=== PATIENT | male | born 1950 | race Caucasian/White ===

== ENCOUNTER → 2018-03-28 | Day surgery (SDC) | payer MEDICARE, OTHER ==
[~2018-03-28] MED LIST: Sodium Bicarbonate 2.5 MEQ/5 ML VIAL ONE
--- NOTE | 2018-03-28 14:37 | ULT ---
THYROID ULTRASOUND: HISTORY: Thyroid nodule. COMPARISON: None. TECHNIQUE: Sagittal and transverse imaging of the thyroid gland is performed. FINDINGS: The thyroid isthmus measures 0.4 cm. The left thyroid lobe measures 4.2 x 2.3 x 2.6 cm. The right thyroid lobe measures 4.1 x 1.3 x 1.8 c m. No masses in the isthmus or right thyroid lobe. Mixed echotexture mass in the left thyroid lobe which measures 3.2 x 1.5 x 2.6 cm. IMPRESSION: Complex dominant nodule in the left thyroid lobe. POS: [facility]
--- NOTE | 2018-03-28 14:39 | ULT ---
ULTRASOUND GUIDED FINE NEEDLE ASPIRATION OF A DOMINANT NODULE IN THE LEFT THYROID LOBE: FINDINGS: Technically successful ultrasound-guided fine needle aspiration of a dominant nodule in the left thyr oid lobe. A total of four 25-gauge fine needle aspirations were performed. No immediate or post pro cedure complication. TECHNIQUE: Consent was obtained to perform a fine needle aspiration of a nodule in the left thyroid lobe, measur ing 3.2 x 2.2 x 1.7 cm. The skin was prepped and draped in a sterile fashion. 1% Lidocaine, buffere d with sodium bicarbonate, was used for local anesthesia. Under ultrasound guidance, a 25-gauge fine needle aspiration was performed, x 4. The patient tolerated the procedure well. No immediate or po st procedure complications. IMPRESSION: Successful fine needle aspiration of a dominate nodule in the left thyroid lobe. Final pathologic di agnosis is pending. POS: [facility]
== END ==
LOC: ULT 12:31
PROVIDERS: ATTEND Otolaryngology Plastic Surgery within the Head & Neck
PROC: 0GBG3ZX Excision of Left Thyroid Gland Lobe, Percutaneous Approach, Diagnostic (ICD-10-PCS; principal; 2018-03-28)
DX: E04.1 Nontoxic single thyroid nodule (principal)
CPT/HCPCS: 10022; 76536; 76942; 88173; 88305

== ENCOUNTER 2018-08-31 10:48 | Outpatient (CLI) | payer MEDICARE, OTHER ==
--- NOTE | 2018-08-31 12:36 | CT ---
CT CERVICAL SPINE: History: Cervical spine fusion, numbness, tingling down both shoulders. Technique: Axial images were obtained of the cervical spine with coronal and sagittal reconstruction. FINDINGS: CT images demonstrate ACDF with fusion of the C2, C3, C4, C5, C6, and C7 vertebrae. There is a minima l anterior displacement of the right C2 screw approximately 1.3 mm anterior to the plate. The rest of the screws are in good position and not significantly displaced. There is disc space height loss and disc desiccation and minimal anterolisthesis of C7 on T1. Mild an terolisthesis of C7 on T1 is seen, approximately 3.6 mm. This is likely due to facet degenerative freddy nges at C7-T1. Mild to moderate bilateral neural foraminal narrowing is also seen due to osteophyte e ncroachment. The other neural foramen are patent. Moderate bilateral distal common and proximal ICA carotid calcifications seen. There does appear to be some heterogeneity in the left thyroid lobe. This correlates with the patient 's previous thyroid ultrasound from 03-28-18. IMPRESSION: Disc degenerative changes at C7-T1 just at the level below the extensive fusion levels. Some osteophy vijay are seen extending to the neural foramen. POS: [facility]
== END 2018-08-31 10:49 | disposition home or self-care (01) ==
LOC: TBSIIMAG 10:48
PROVIDERS: ATTEND Neurological Surgery
DX: M47.23 Other spondylosis with radiculopathy, cervicothoracic region (principal); Z98.1 Arthrodesis status
CPT/HCPCS: 72125

== ENCOUNTER 2018-09-22 11:24 | Day surgery (SDC) | payer MEDICARE, OTHER ==
[2018-09-21 15:32] VITALS: BMI 35.7
[2018-09-22] MEDS ORDERED: PROPOFOL 200 MG/20 ML VIAL ONE (13:00)
[2018-09-22] MEDS ORDERED: Midazolam HCl 2 mg/2 ml Vial ONE (13:02)
[2018-09-22] MEDS ORDERED: Fentanyl 100 MCG/2 ML VIAL ONE (13:03)
--- NOTE | 2018-09-22 15:50 | MRI ---
MRI CERVICAL SPINE WITHOUT CONTRAST: HISTORY: Cervical fusion. Cervical spine pain. Neck pain with bilateral shoulder numbness. COMPARISON: None. CORRELATION: CT cervical spine 08/31/2018. FINDINGS: Limited evaluation of the cervical spine vertebral body marrow signal intensity due to metallic susce ptibility artifact from the anterior fusion plate spanning from C2 through C7. Disk prosthesis from C2 through C3 through C6-C7. Five millimeters of anterolisthesis of C7 upon T1.. Visualized brain parenchyma, cervicomedullary junction, cervical cord, and the upper thoracic cord delong ve a normal size and signal intensity. C2-C3: No high-grade central canal stenosis. Neural foramen are patent bilaterally. C3-C4: No high-grade central canal stenosis. Right neural foramen is patent. Moderate left foramin al narrowing. C4-C5: Broad-based osteophyte ridge. No significant central canal stenosis. The right neural horacio en is patent. There is mild left foraminal narrowing. C5-C6: No significant osteophyte ridge. No significant central canal stenosis. The neural foramen are patent bilaterally. C6-C7: No significant osteophyte ridge. No significant central canal stenosis. Mild right and mild left foraminal narrowing. C7-T1: No significant disk-osteophyte complex. No significant central canal stenosis. Foramina are patent. IMPRESSION: Cervical fusion changes as above. No significant central canal stenosis. There is moderate left shekhar ral foraminal narrowing at C3-C4. POS: [facility]
== END 2018-09-22 15:45 | disposition home or self-care (01) ==
LOC: SDC/OP 11:24
PROVIDERS: ATTEND Neurological Surgery
DX: M48.02 Spinal stenosis, cervical region (principal); Z79.82 Long term (current) use of aspirin; Z79.899 Other long term (current) drug therapy
CPT/HCPCS: 72141; J2250; J2704; J3010

== ENCOUNTER 2019-01-04 09:53 | Outpatient (CLI) | payer MEDICARE, OTHER | END 2019-01-04 09:54 | disposition home or self-care (01) | LOC: CTENTCT 09:53 | PROVIDERS: ATTEND Otolaryngology Plastic Surgery within the Head & Neck | DX: J32.9 Chronic sinusitis, unspecified (principal) | CPT/HCPCS: 70486 ==

== ENCOUNTER 2019-01-16 08:31 | Outpatient (CLI) | payer MEDICARE, OTHER ==
--- NOTE | 2019-01-16 11:29 | RAD ---
BARIUM SWALLOW ESOPHOGRAM WITH AIR CONTRAST: Date: 01-16-19 History: 68-year-old male with dysphagia. Technique: Upright administration of effervescent granules and thick liquid barium. Intermittent fluoroscopy of neck and esophagus. Prone MENARD administration of thin liquid barium with fluoroscopy. FINDINGS: Long anterior metallic plate and screws in the cervical spine from C2 to C7. Successful ankylosis. No osteophyte encroachment upon the hypopharynx. Significant barium residue in the vallecula and pyrifo rm sinuses with incomplete clear upon repeat dry swallows. Penetration into larynx. One episode of as piration eliciting cough. The esophagus is diffusely dilated except the esophagogastric junction. There is no high grade strict ure. Where visible, no gross mucosal pattern abnormality identified. No gastroesophageal reflux visua lized. There is moderate sized or large hiatal hernia. IMPRESSION: 1. Pharyngeal phase dysphagia, with significant residue in vallecula and pyriform sinuses, with poor clearance upon repeat swallows. 2. Penetration and single episode of aspiration. 3. Patulous esophagus. 4. Status post anterior cervical discectomy and fusion throughout the cervical spine. POS: [facility]
== END 2019-01-16 08:32 | disposition home or self-care (01) ==
LOC: RAD 08:31
PROVIDERS: ATTEND Otolaryngology Plastic Surgery within the Head & Neck
DX: R13.13 Dysphagia, pharyngeal phase (principal); K22.8 Other specified diseases of esophagus; Z98.890 Other specified postprocedural states; Z98.1 Arthrodesis status
CPT/HCPCS: 74220

== ENCOUNTER 2019-04-30 13:32 | Observation (INO) | payer MEDICARE, OTHER ==
[2019-04-30] MEDS ORDERED: HumaLOG 300 UNITS/3 ML VIAL SC PRN ×2 (17:06)
[2019-04-30] MEDS ORDERED: Ondansetron PF 4 MG/2 ML Vial IVP PRN (17:07)
[2019-04-30] MEDS ORDERED: Acetaminophen 325 MG TAB PO PRN (17:07)
[2019-04-30] MEDS ORDERED: Ondansetron ODT 4 MG TAB PO PRN (17:07)
[2019-04-30 17:16] VITALS: BMI 33.4
[2019-04-30] MEDS ORDERED: Sodium Chloride 0.9% (PF) 10 ML VIAL FS PRN (17:19)
[2019-04-30] MEDS ORDERED: Aspirin Chewable 81 MG TAB PO SCH (18:00)
[2019-04-30 18:04] LABS: Troponin I Less than 0.010 ng/mL (< 0.028)
[2019-04-30] MEDS: Gabapentin 300 MG CAP PO SCH (20:45)
[2019-04-30 20:52] LABS: Troponin I Less than 0.010 ng/mL (< 0.028)
[2019-04-30] MEDS ORDERED: Atorvastatin Calcium 20 MG TAB PO SCH (21:00)
[2019-04-30] MEDS ORDERED: Pantoprazole 40 MG VIAL IVP SCH (21:00)
--- NOTE | 2019-04-30 23:41 | HP ---
PRIMARY CARE PHYSICIAN: Dr. Romero. CHIEF COMPLAINT: Chest pain. HISTORY OF PRESENT ILLNESS: Mr. Brooks is a pleasant 68-year-old man with a past medical history of hypertension, hyperlipidemia, diabetes mellitus type 2, who had presented to [facility] after being transferred from an outside [place] ER earlier today for chest pain. The patient stated that his chest pain/chest pressure started earlier this morning when he was sitting in a chair watching television. He states that this pressure radiated up to his jaw and his pain improved after he had taken aspirin and nitroglycerin. He had denied any fever, chills, any headache, blurred vision, dizziness, any palpitations, shortness of breath, abdominal pain, nausea, or vomiting, any swelling down his lower extremities or any change in his bowel wounds. He states that he sees assistant designer Dr. Melendez and had recently undergone a cardiac workup, which included a stress test and an echocardiogram within the last year, he states that he thinks these were both negative. However, there was no evidence in the system that I could find. He denied any recent travel or any recent illness. His initial workup included a chest x-ray, which was found to be unremarkable and serial troponins were found to be negative x2 so far. Upon arrival, his blood pressure was found to be slightly elevated, however, this has since improved to 114/72, pulse 73, respirations 12, temp 97 degrees Fahrenheit, O2 saturation 98% on room air. He is currently accompanied by several family members at his bedside and he appears to be in no acute distress at this time. A consult was placed to Dr. Melendez for further evaluation and further recommendations on his care. REVIEW OF SYSTEMS: All other systems reviewed and found to be negative unless mentioned in the HPI. PAST MEDICAL HISTORY: Hypertension, hyperlipidemia, diabetes mellitus type 2. 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 PSYCHIATRIC HISTORY: None. SOCIAL HISTORY: The patient reports a previous smoking history; however, quit about 28 years ago and denies any alcohol or any illicit drug use. KNOWN ALLERGIES: No known drug allergies. CURRENT HOME MEDICATIONS: 1. Amlodipine 5 mg p.o. daily. 2. Acetaminophen 1000 mg p.o. p.r.n. pain. 3. Vitamin C 1000 mg p.o. b.i.d. 4. Aspirin 81 mg daily. 5. Cyclobenzaprine 10 mg p.o. t.i.d. p.r.n. muscle spasms. 6. Furosemide 20 mg p.o. daily. 7. Hydrocodone/acetaminophen 5/325 mg 1-2 tablets p.o. p.r.n. pain. 8. Loratadine 10 mg p.o. daily. 9. Metformin 500 mg p.o. b.i.d. 10. Omeprazole 20 mg p.o. b.i.d. 11. Saw Ronan 3 caps p.o. daily. 12. Simvastatin 20 mg p.o. q.p.m. 13. Tramadol 50 mg p.o. at bedtime p.r.n. pain. 14. Gabapentin 300 mg p.o. b.i.d. 15. Lisinopril 40 mg p.o. daily. PHYSICAL EXAMINATION: VITAL SIGNS: Blood pressure 155/77, pulse 54, respirations 20, temperature 97.9 degrees Fahrenheit, O2 saturations 97% on room air. GENERAL: The patient is awake, alert, and oriented x3. He is currently lying comfortably in bed and in no acute distress at this time. Several family members at bedside. HEENT: Atraumatic, normocephalic. Pupils are round and reactive to light. Extraocular muscles intact. Moist mucous membranes noted. NECK: Soft and supple. Trachea midline. CARDIOVASCULAR: Positive S1 and S2. Regular rate and rhythm. No murmur auscultated. RESPIRATORY: Clear to auscultation bilaterally. No wheezes, rales, or rhonchi. ABDOMEN: Soft, nontender. Bowel sounds present. MUSCULOSKELETAL: Normal range of motion of upper and lower extremities bilaterally. Pedal and radial pulses palpable 2+ bilaterally. No edema noted. NEUROLOGIC: Cranial nerves 2 through 12 grossly intact. No focal deficits noted. His strength 5+ bilaterally in upper and lower extremities. Speech intact and normal. Gait not assessed. SKIN: Warm, dry, and intact. No rashes or ulceration noted. PSYCHIATRIC: Good mood and affect. LABORATORY DATA: WBC 8.5, RBC 4.71, hemoglobin 14.0, platelet 199. Sodium 140, potassium 4.4, anion gap 17, BUN 13, creatinine 1.00, estimated GFR 74, glucose 128. Troponin negative x2. BNP 21.2. DIAGNOSTIC IMAGING: Portable chest x-ray showed no evidence of acute cardiopulmonary disease. ASSESSMENT/PLAN: 1. Chest pain, the patient's assistant designer will be consulted, Dr. Louie for further evaluation and further recommendations of his care. The patient states that he had a cardiac stress test along with an echocardiogram within the last year. However, there are no results seen in the system. So far, troponins negative x2, and he will be restarted on his home medications at this time. 2. Hypertension. Continue home regimen and monitor blood pressure and other vital signs closely during hospital course. 3. Hyperlipidemia. Continue statin at this time. Recheck lipid panel in the morning. 4. Diabetes mellitus, the patient will be placed on insulin sliding scale at this time with frequent Accu-Cheks and his home dose of metformin will be held at this time. 5. History of gastroesophageal reflux disease. Continue on proton pump inhibitor. 6. Deep venous thrombosis and gastrointestinal prophylaxis. CODE STATUS: 1. Full code. 2. Surrogate decision maker is his , Flor. DISPOSITION: Pending further workup and clinical findings. Job ID: [id number]
[2019-04-30] MEDS ORDERED: Nitroglycerin 0.4 MG TAB (25 Tab Bottle) SL PRN (23:46)
[2019-05-01 05:31] LABS: #Eosinphils 0.2 thou/uL (0.0-0.7); #Lymphocytes 2.1 thou/uL (1.20-3.40); #Monocytes 0.7 thou/uL (0.11-0.59); #Neutrophils 5.3 thou/uL (1.40-6.50); %Basophils 0.3 % (0.0-1.0); %Eosinophils 2.2 % (0.0-10.0); %Lymphocytes 25.5 % (21.0-51.0); %Monocytes 8.3 % (0.0-10.0); %Neutrophils 63.7 % (42.0-75.0); Hemoglobin 12.8 g/dL (14.0-18.0); Mean Corpuscular HGB CONC 34.7 g/dL (32.0-36.0); Mean Corpuscular Hemoglobin 30.9 pg (27.0-31.0); Mean Platelet Volume 6.8 fL (7.4-10.4); Platelet Count 198 thou/uL (130-400); RBC Distribution Width 12.1 % (11.5-14.5); Red Blood Cell (RBC) Count 4.13 mill/uL (4.70-6.10); White Blood Cell (WBC) Count 8.3 thou/uL (4.8-10.8)
[2019-05-01 05:48] LABS: Anion Gap 11 mmol/L (10-20); BUN (Urea Nitrogen) 14 mg/dL (8.4-25.7); Calc. Creatinine Clearance 112 mL/min (70-130); Calcium 9.3 mg/dL (7.8-10.44); Carbon Dioxide 26 mmol/L (23-31); Chloride 103 mmol/L (98-107); Cholesterol 122 mg/dl (< 200 Desired); Estimated GFR-MDRD 85; Glucose 124 mg/dL (80-115); HDL Cholesterol 41 mg/dL (>60 Neg Risk); LDL Cholesterol, Calculated 65 mg/dL; Sodium 136 mmol/L (136-145); Triglycerides 82 mg/dL (Less than 150)
[2019-05-01] MEDS ORDERED: Lisinopril 20 MG TAB PO SCH (09:00)
[2019-05-01] MEDS ORDERED: Furosemide 20 MG TAB PO SCH (09:00)
[2019-05-01] MEDS ORDERED: Enoxaparin Sodium 40 MG/0.4 ML SYRINGE SC SCH (09:00)
[2019-05-01] MEDS ORDERED: Amlodipine 5 MG TAB PO SCH (09:00)
[2019-05-01] MEDS: Gabapentin 300 MG CAP PO SCH (09:23)
[2019-05-01 13:25] VITALS: BP 132/73; TEMP 97.8
--- NOTE | 2019-05-04 09:12 | EKG ---
Test Reason : Blood Pressure : / mmHG Vent. Rate : 062 BPM Atrial Rate : 059 BPM P-R Int : 000 ms QRS Dur : 078 ms QT Int : 414 ms P-R-T Axes : 080 -17 -07 degrees QTc Int : 420 ms Sinus rhythm Minimal voltage criteria for LVH, may be normal variant Borderline ECG Leftward axis T wave inversion III Confirmed by TOMMY WILBURN DO ([id number]), rewrite editor RUBÉN MAYBERRY ([id number]) on 05/04/2019 9:11:51 AM Referred By: Confirmed By:TOMMY WILBURN DO
== END 2019-05-01 16:50 | disposition home or self-care (01) ==
LOC: ERS 13:32 → 2SW 16:35
PROVIDERS: ADMIT Internal Medicine; ATTEND Internal Medicine
DX: R07.89 Other chest pain (principal); I10 Essential (primary) hypertension; E78.5 Hyperlipidemia, unspecified; E11.40 Type 2 diabetes mellitus with diabetic neuropathy, unspecified; Z87.891 Personal history of nicotine dependence; Z79.82 Long term (current) use of aspirin; Z79.84 Long term (current) use of oral hypoglycemic drugs; Z79.899 Other long term (current) drug therapy; Z98.890 Other specified postprocedural states
CPT/HCPCS: 80048; 80061; 82962 ×2; 84443; 84484; 85025; 93005; 94760; 97139; 99285; G0378 ×2; 36415; 36416; J1650

== ENCOUNTER 2019-08-18 19:59 | Emergency (ER) | payer MEDICARE, OTHER ==
[2019-08-18 20:29] LABS: #Eosinphils 0.2 thou/uL (0.0-0.7); #Lymphocytes 2.2 thou/uL (1.20-3.40); %Basophils 0.1 % (0.0-1.0); %Eosinophils 2.4 % (0.0-10.0); %Lymphocytes 20.6 % (21.0-51.0); %Monocytes 9.6 % (0.0-10.0); %Neutrophils 67.3 % (42.0-75.0); Hemoglobin 14.3 g/dL (14.0-18.0); Mean Corpuscular HGB CONC 34.8 g/dL (32.0-36.0); Mean Corpuscular Hemoglobin 30.6 pg (27.0-31.0); Mean Corpuscular Volume 87.9 fL (78.0-98.0); Mean Platelet Volume 6.6 fL (7.4-10.4); Platelet Count 227 thou/uL (130-400); RBC Distribution Width 11.8 % (11.5-14.5); Red Blood Cell (RBC) Count 4.68 mill/uL (4.70-6.10); White Blood Cell (WBC) Count 10.4 thou/uL (4.8-10.8)
[2019-08-18] MEDS ORDERED: Morphine 4 MG/ML VIAL ONE (20:36)
[2019-08-18] MEDS ORDERED: Ondansetron PF 4 MG/2 ML Vial ONE (20:36)
[2019-08-18 20:51] LABS: ALT (SGPT) 24 U/L (8-55); AST (SGOT) 18 U/L (5-34); Albumin 4.7 g/dL (3.4-4.8); Alkaline Phosphatase 111 U/L (40-110); Anion Gap 14 mmol/L (10-20); BUN (Urea Nitrogen) 21 mg/dL (8.4-25.7); Bilirubin, Total 0.4 mg/dL (0.2-1.2); Calc. Creatinine Clearance 0 mL/min (70-130); Calcium 10.2 mg/dL (7.8-10.44); Carbon Dioxide 24 mmol/L (23-31); Chloride 106 mmol/L (98-107); Estimated GFR-MDRD 65; Globulin 2.9 g/dL (2.4-3.5); Glucose 133 mg/dL (83-110); Potassium 3.7 mmol/L (3.5-5.1); Protein, Total 7.6 g/dL (5.8-8.1); Sodium 140 mmol/L (136-145)
[2019-08-18 20:55] LABS: Bilirubin Negative (Negative); Blood, Urine Negative (Negative); Clarity Clear (Clear); Glucose, Urine (Dipstick) Normal (Negative); Leukocyte Negative Leu/uL (Negative); Nitrite Negative (Negative); Protein, Urine (Dipstick) 10 mg/dL (Neg-Trace); Urobilinogen Normal mg/dL (Less than 2)
--- NOTE | 2019-08-18 21:12 | CT ---
EXAM: Abdomen and pelvic CT scan without contrast: HISTORY: History kidney stones, pain COMPARISON: 07/26/2019 FINDINGS: The visualized lung bases are clear. Liver: Unremarkable. Gallbladder:Status post cholecystectomy without significant common duct dilatation. Pancreas:Unremarkable Spleen:Unremarkable. Adrenal glands:Unremarkable. Kidneys:Prior right nephrectomy. Nonobstructing small left renal calculi. No evidence for acute obstruction. No solid or cystic renal mass. Sigmoid colon diverticulosis without acute diverticulitis. Left fat-containing inguinal hernia. No CT evidence for acute appendicitis. The urinary bladder is unremarkable. Reproductive system:Unremarkable No abscess, adenopathy, or abnormal fluid collection within the abdomen or pelvis. IMPRESSION: Nonobstructing left renal calculi. No evidence for acute obstruction. Status post right nephrectom y. Other findings as above. No significant new process from prior study.
== END 2019-08-18 21:56 | disposition home or self-care (01) ==
LOC: ERS 19:59
DX: R10.32 Left lower quadrant pain (principal); K21.9 Gastro-esophageal reflux disease without esophagitis; E78.5 Hyperlipidemia, unspecified; I10 Essential (primary) hypertension; Z79.899 Other long term (current) drug therapy; Z79.82 Long term (current) use of aspirin; Z79.84 Long term (current) use of oral hypoglycemic drugs
CPT/HCPCS: 74176; 80053; 81003; 85025; 96361; 96374; 96375; J2270; J2405

== ENCOUNTER 2020-05-30 08:17 | Outpatient (CLI) | payer MEDICARE, OTHER ==
[2020-05-30 14:09] LABS: INR-International Normal Ratio 0.9; Prothrombin Time 11.9 sec (12.0-14.7)
[2020-05-30 14:11] LABS: Hemoglobin 13.5 g/dL (14.0-18.0); Mean Corpuscular HGB CONC 33.2 g/dL (32.0-36.0); Mean Corpuscular Hemoglobin 29.5 pg (27.0-31.0); Mean Corpuscular Volume 88.8 fL (78.0-98.0); Mean Platelet Volume 7.1 fL (7.4-10.4); Platelet Count 228 thou/uL (130-400); RBC Distribution Width 12.7 % (11.5-14.5); Red Blood Cell (RBC) Count 4.59 mill/uL (4.70-6.10); White Blood Cell (WBC) Count 9.1 thou/uL (4.8-10.8)
[2020-05-30 14:31] LABS: Anion Gap 13 mmol/L (10-20); BUN (Urea Nitrogen) 14 mg/dL (8.4-25.7); Calc. Creatinine Clearance 0 mL/min (70-130); Calcium 9.2 mg/dL (7.8-10.44); Carbon Dioxide 25 mmol/L (23-31); Chloride 102 mmol/L (98-107); Estimated GFR-MDRD 67; Glucose 162 mg/dL (83-110); Potassium 4.1 mmol/L (3.5-5.1); Sodium 136 mmol/L (136-145)
[2020-05-30 15:00] LABS: Bacteria/HPF None Seen HPF (None Seen); Bilirubin Negative (Negative); Blood, Urine Negative (Negative); Clarity Clear (Clear); Glucose, Urine (Dipstick) Normal (Negative); Ketone, Urine Negative (Negative); Leukocyte Negative Leu/uL (Negative); Nitrite Negative (Negative); Protein, Urine (Dipstick) Negative (Neg-Trace); RBC/HPF 0-3 HPF (0-3); Specific Gravity, Urine 1.013 (1.002-1.036); Squamous Epithelial None Seen HPF (0-3); Urobilinogen Normal mg/dL (Less than 2); WBC/HPF 0-3 HPF (0-3); pH, Urine 5.5 (5.0-9.0)
[2020-05-31 12:29] LABS: SARS-CoV-2 MS2 Positive; SARS-CoV-2 N Gene Negative; SARS-CoV-2 S Gene Negative; SARS-CoV-2 by NAA Not Detected (NotDetected); SARS-CoV-2 orf1ab Negative
== END 2020-05-30 08:18 | disposition home or self-care (01) ==
LOC: LABBT 08:17
PROVIDERS: ATTEND Urology
DX: Z01.818 Encounter for other preprocedural examination (principal); Z11.59 Encounter for screening for other viral diseases; N52.9 Male erectile dysfunction, unspecified
CPT/HCPCS: 80048; 81001; 85027; 85610; 85730; 87086; 93005; U0003; 87635; 93010

== ENCOUNTER 2020-06-03 06:02 | Observation (INO) | payer MEDICARE, OTHER ==
[2020-06-03] MEDS ORDERED: Bacitracin Zinc Ointment 30 gm TUBE ONE (06:53)
[2020-06-03] MEDS ORDERED: Bupivacaine 0.25% HCL 30 ML VIAL ONE (06:53)
[2020-06-03] MEDS ORDERED: CEFAZOLIN 2 GM in Premix Bag 1 BAG IVPB SCH (07:30)
[2020-06-03] MEDS ORDERED: Gentamicin Sulfate 240 MG in Sodium Chloride 0.9% 100 ML IVPB SCH ×2 (07:30→07:45)
[2020-06-03] MEDS ORDERED: Fentanyl 100 MCG/2 ML VIAL ONE ×3 (07:32→10:04)
[2020-06-03] MEDS ORDERED: Promethazine HCl 25 MG/ML VIAL IM PRN (09:26)
[2020-06-03] MEDS ORDERED: Meperidine HCl/PF 25 MG/ML VIAL SLOW IVP PRN (09:26)
[2020-06-03] MEDS ORDERED: HYDROmorphone 2 MG/ML VIAL SLOW IVP PRN (09:26)
[2020-06-03] MEDS ORDERED: Ketorolac Tromethamine 30 MG/ML VIAL IVP PRN (09:26)
[2020-06-03] MEDS ORDERED: Promethazine HCl 25 MG/ML VIAL SLOW IVP PRN (09:26)
[2020-06-03] MEDS ORDERED: Ondansetron HCl/PF 4 MG/2 ML Vial IVP PRN (09:26)
[2020-06-03] MEDS ORDERED: Ketorolac Tromethamine 30 MG/ML VIAL ONE (10:35)
[2020-06-03] MEDS ORDERED: Ondansetron PF 4 MG/2 ML Vial ONE (10:35)
[2020-06-03] MEDS ORDERED: Lidocaine 1% PF 5 ML VIAL ONE (10:35)
[2020-06-03] MEDS ORDERED: PROPOFOL 200 MG/20 ML VIAL ONE (10:35)
[2020-06-03] MEDS ORDERED: EPHEDRINE 25 MG/5 ML SYRINGE ONE (10:35)
[2020-06-03] MEDS ORDERED: Morphine 4 MG/ML VIAL ONE (10:36)
--- NOTE | 2020-06-03 11:03 | OP ---
DATE OF PROCEDURE: 06/03/2020 PREOPERATIVE DIAGNOSES: Erectile dysfunction due to arterial insufficiency, right thigh skin tag, penoscrotal webbing. POSTOPERATIVE DIAGNOSES: Erectile dysfunction due to arterial insufficiency, right thigh skin tag, penoscrotal webbing. PROCEDURES PERFORMED: Placement of three-piece penile prosthesis-LGX 18+1, correction of penoscrotal webbing, removal of right thigh skin tag. ANESTHESIA: General. COMPLICATIONS: None. BLOOD LOSS: 100 mL. SPECIMEN: None. DESCRIPTION OF PROCEDURE: After informed consent, the patient was taken to the operating room, transferred to the table on his own power. Anesthesia was established. A time-out was performed showing correct patient, site, and procedure. Preoperative antibiotics were administered. He was carefully prepped with 2 ChloraPrep sticks and draped using a Trauma Pouch. I then placed a 16-Malay catheter with 10 mL instilled in the balloon. Clear urine drained. This was then plugged and the [place]-Star deployed. The proposed incision for correction of penoscrotal webbing was marked and then a transverse incision performed. Both electrocautery and sharp and blunt dissection were used to dissect down onto the urethra and corpora, which were cleared as far posterior as possible. Stay sutures were then placed into the corpora, which were then opened. They were each dilated up to 13-Malay Galvin dilators distally and 14 proximally. They were then measured and found to be 8 distal and 11 proximal on both sides. The reservoir was then prepared and the space of Retzius on the right side entered and bluntly developed. The reservoir was placed here and then filled with 90 mL of fluid. An 18+1 LGX implant was selected and carefully prepared. The cylinders were then placed into the corpora and the corporotomy was closed with the previously placed sutures. The reservoir was connected to the pump using quick connectors and the implant cycled noting excellent cycling and good position. A 10 Fr drain was positioned with one end in the right space of Retzius and the other brought out through the dependent portion of the scrotum. A pouch was then bluntly developed for the pump. Scrotal tissue was closed in 2 layers before dartos, which was then run longitudinally with Vicryl suture. The skin edges were excised along the previously marked incision lines. This was then closed longitudinally providing good correction of the penoscrotal webbing. I then identified the small skin tag on his right thigh and removed this with scissors after crushing the tissue. The incisions were then dressed with antibiotic ointment, gauze, and Medipore tape was placed over top allowing compression. The catheter was then connected to bag drainage. The case was terminated at this point. All counts were correct. He was awoken from anesthesia, transferred back to his hospital bed, and taken to PACU in stable condition, where he will be admitted overnight. Job ID: [id number] [facility]ALKizzy
[2020-06-03] MEDS ORDERED: Fluticasone Propionate Nasal Spray 16 gm Bottle NASAL PRN ×2 (12:21→12:51)
[2020-06-03] MEDS ORDERED: diphenhydrAMINE 50 MG/ML VIAL IVP PRN (12:21)
[2020-06-03] MEDS ORDERED: Cyclobenzaprine 10 MG TAB PO PRN ×2 (12:21→12:49)
[2020-06-03] MEDS ORDERED: Morphine 4 MG/ML VIAL SLOW IVP PRN (12:21)
[2020-06-03] MEDS ORDERED: Ondansetron PF 4 MG/2 ML Vial IVP PRN (12:21)
[2020-06-03] MEDS ORDERED: Zolpidem Tartrate 5 MG TAB PO PRN (12:21)
[2020-06-03 12:25] VITALS: BMI 34.0
[2020-06-03] MEDS: HYDROcodone/Acetaminophen 10/325 mg Tablet PO PRN ×2 (13:02→23:24)
[2020-06-03] MEDS: Sodium Chloride 0.9% 1,000 ML IV SCH ×2 (13:04→18:15)
[2020-06-03] MEDS: CEFAZOLIN 2 GM in Premix Bag 1 BAG IVPB SCH ×2 (13:14→21:00)
[2020-06-03] MEDS: metFORMIN 500 MG TAB PO SCH (16:33)
[2020-06-03] MEDS: Ketorolac Tromethamine 30 MG/ML VIAL IVP PRN ×2 (16:33→22:13)
[2020-06-03] MEDS ORDERED: metFORMIN 500 MG TAB PO SCH (17:00)
[2020-06-03] MEDS: Docusate 100 MG CAP PO SCH (20:49)
[2020-06-03] MEDS: Gabapentin 300 MG CAP PO SCH (20:49)
[2020-06-03] MEDS ORDERED: Simvastatin 20 MG TAB PO SCH (21:00)
[2020-06-03] MEDS ORDERED: Atorvastatin Calcium 10 MG TAB PO SCH (21:00)
[2020-06-03] MEDS ORDERED: Gabapentin 300 MG CAP PO SCH (21:00)
[2020-06-03] MEDS ORDERED: Non-Formulary Item 1 EACH (Omeprazole Magnesium [Prilosec] 40 MG) PO SCH (21:00)
[2020-06-04] MEDS: CEFAZOLIN 2 GM in Premix Bag 1 BAG IVPB SCH (05:34)
[2020-06-04 08:28] VITALS: BP 135/77; TEMP 99.1
[2020-06-04] MEDS ORDERED: Loratadine 10 MG TAB PO SCH (09:00)
[2020-06-04] MEDS ORDERED: Non-Formulary Item 1 EACH (Lisinopril [Lisinopril] 1 TAB) PO SCH (09:00)
[2020-06-04] MEDS ORDERED: Lisinopril 20 MG TAB PO SCH (09:00)
[2020-06-04] MEDS ORDERED: Furosemide 20 MG TAB PO SCH (09:00)
[2020-06-04] MEDS ORDERED: Amlodipine 5 MG TAB PO SCH (09:00)
[2020-06-04] MEDS ORDERED: Aspirin 81 mg Enteric Coated Tablet PO SCH ×2 (09:00)
[2020-06-04] MEDS: metFORMIN 500 MG TAB PO SCH (09:08)
[2020-06-04] MEDS: Docusate 100 MG CAP PO SCH (09:09)
[2020-06-04] MEDS: Gabapentin 300 MG CAP PO SCH (09:09)
[2020-06-04] MEDS: HYDROcodone/Acetaminophen 10/325 mg Tablet PO PRN (09:16)
== END 2020-06-04 12:15 | disposition home or self-care (01) ==
LOC: SDC 06:02 → INTOOBSV 09:41 → SURG A 09:41
PROVIDERS: ADMIT Urology; ATTEND Urology
PROC: 0VQ5XZZ Repair Scrotum, External Approach (ICD-10-PCS; principal; 2020-06-03)
PROC: 0VUS0JZ Supplement Penis with Synthetic Substitute, Open Approach (ICD-10-PCS; 2020-06-03)
DX: N52.01 Erectile dysfunction due to arterial insufficiency (principal); L91.8 Other hypertrophic disorders of the skin; I10 Essential (primary) hypertension; Z79.82 Long term (current) use of aspirin; Z79.899 Other long term (current) drug therapy; Z87.891 Personal history of nicotine dependence
CPT/HCPCS: 54405; 55180; C1813; 96361; 96374; 96375; 96376; G0378; J0690; J1580; J1885; J2270; J2405; J2704; J3010; J3490; S0020

== ENCOUNTER 2020-12-30 14:04 | Outpatient (CLI) | payer MEDICARE, OTHER | END 2020-12-30 14:05 | disposition home or self-care (01) | LOC: CTENTCT 14:04 | PROVIDERS: ATTEND Otolaryngology Plastic Surgery within the Head & Neck | DX: J32.9 Chronic sinusitis, unspecified (principal) | CPT/HCPCS: 70486 ==

== ENCOUNTER 2021-01-09 11:07 | Outpatient (CLI) | payer MEDICARE, OTHER ==
[2021-01-09 14:33] LABS: Hemoglobin 13.6 g/dL (13.5-17.5)
[2021-01-09 15:26] LABS: Anion Gap 14 mmol/L (10-20); BUN (Urea Nitrogen) 21 mg/dL (8.4-25.7); Calc. Creatinine Clearance 0 mL/min (70-130); Calcium 9.6 mg/dL (7.8-10.44); Carbon Dioxide 25 mmol/L (23-31); Chloride 102 mmol/L (98-107); Glucose 111 mg/dL (83-110); Potassium 4.4 mmol/L (3.5-5.1); Sodium 137 mmol/L (136-145)
[2021-01-10 02:22] LABS: SARS-CoV-2 PCR by NAA Not Detected (NotDetected)
== END 2021-01-09 11:08 | disposition home or self-care (01) ==
LOC: LABBT 11:07
PROVIDERS: ATTEND Otolaryngology Plastic Surgery within the Head & Neck
DX: Z01.818 Encounter for other preprocedural examination (principal); R51.9 Headache, unspecified; J34.3 Hypertrophy of nasal turbinates; J32.9 Chronic sinusitis, unspecified; J32.2 Chronic ethmoidal sinusitis; H05.019 Cellulitis of unspecified orbit; Z20.822 Contact with and (suspected) exposure to COVID-19
CPT/HCPCS: 80048; 85014; 85018; 93005; U0003; U0005; 87635; 93010

== ENCOUNTER 2021-01-14 07:20 | Day surgery (SDC) | payer MEDICARE, OTHER ==
[2021-01-13 12:24] VITALS: BMI 35.4
[2021-01-14] MEDS ORDERED: AFRIN NASAL MIST 15 ML BOT ONE ×2 (07:48→08:28)
[2021-01-14] MEDS ORDERED: Lidocaine 1% w/Epinephrine 1:100K 20 ML VIAL ONE (08:27)
[2021-01-14] MEDS ORDERED: Fentanyl 100 MCG/2 ML VIAL ONE ×4 (08:37→10:11)
[2021-01-14] MEDS ORDERED: Dexamethasone 20 MG/5 ML VIAL ONE (09:31)
[2021-01-14] MEDS ORDERED: Ondansetron PF 4 MG/2 ML Vial ONE (09:31)
[2021-01-14] MEDS ORDERED: Lidocaine 1% PF 5 ML VIAL ONE (09:31)
[2021-01-14] MEDS ORDERED: ePHEDrine 50 MG/ML VIAL ONE (09:31)
[2021-01-14] MEDS ORDERED: Succinylcholine 200 MG/10 ml SYRINGE FS ONE (09:31)
[2021-01-14] MEDS ORDERED: PROPOFOL 200 MG/20 ML VIAL ONE (09:31)
[2021-01-14] MEDS ORDERED: HYDROcodone/Acetaminophen 5/325 mg Tablet ONE ×2 (12:00→12:21)
== END 2021-01-14 13:41 | disposition home or self-care (01) ==
LOC: SDC 07:20
PROVIDERS: ATTEND Otolaryngology Plastic Surgery within the Head & Neck
PROC: 8E09XBZ Computer Assisted Procedure of Head and Neck Region (ICD-10-PCS; principal; 2021-01-14)
PROC: 099R8ZZ Drainage of Left Maxillary Sinus, Via Natural or Artificial Opening Endoscopic (ICD-10-PCS; 2021-01-14)
PROC: 099Q8ZZ Drainage of Right Maxillary Sinus, Via Natural or Artificial Opening Endoscopic (ICD-10-PCS; 2021-01-14)
PROC: 09BT8ZZ Excision of Left Frontal Sinus, Via Natural or Artificial Opening Endoscopic (ICD-10-PCS; 2021-01-14)
PROC: 09BS8ZZ Excision of Right Frontal Sinus, Via Natural or Artificial Opening Endoscopic (ICD-10-PCS; 2021-01-14)
PROC: 09BL8ZZ Excision of Nasal Turbinate, Via Natural or Artificial Opening Endoscopic (ICD-10-PCS; 2021-01-14)
PROC: 09BV8ZZ Excision of Left Ethmoid Sinus, Via Natural or Artificial Opening Endoscopic (ICD-10-PCS; 2021-01-14)
PROC: 09BU8ZZ Excision of Right Ethmoid Sinus, Via Natural or Artificial Opening Endoscopic (ICD-10-PCS; 2021-01-14)
PROC: 09CX8ZZ Extirpation of Matter from Left Sphenoid Sinus, Via Natural or Artificial Opening Endoscopic (ICD-10-PCS; 2021-01-14)
PROC: 09CW8ZZ Extirpation of Matter from Right Sphenoid Sinus, Via Natural or Artificial Opening Endoscopic (ICD-10-PCS; 2021-01-14)
DX: J32.2 Chronic ethmoidal sinusitis (principal); J33.9 Nasal polyp, unspecified; J34.89 Other specified disorders of nose and nasal sinuses; J34.3 Hypertrophy of nasal turbinates; H05.019 Cellulitis of unspecified orbit; Z79.51 Long term (current) use of inhaled steroids; Z79.82 Long term (current) use of aspirin; Z79.899 Other long term (current) drug therapy; Z87.891 Personal history of nicotine dependence
CPT/HCPCS: 87070; 87205; J1100; J2405; J2704; J3010; J3490

== ENCOUNTER 2021-05-01 11:08 | Outpatient (CLI) | payer MEDICARE, OTHER ==
[2021-05-01 12:39] LABS: ALT (SGPT) 27 U/L (8-55); AST (SGOT) 22 U/L (5-34); Albumin 4.4 g/dL (3.4-4.8); Alkaline Phosphatase 105 U/L (40-110); Anion Gap 14 mmol/L (10-20); BUN (Urea Nitrogen) 15 mg/dL (8.4-25.7); Bilirubin, Total 0.6 mg/dL (0.2-1.2); Calc. Creatinine Clearance 0 mL/min (70-130); Carbon Dioxide 26 mmol/L (23-31); Chloride 104 mmol/L (98-107); Globulin 2.6 g/dL (2.4-3.5); Glucose 132 mg/dL (83-110); Potassium 4.2 mmol/L (3.5-5.1); Sodium 140 mmol/L (136-145)
[2021-05-01 12:41] LABS: #Eosinphils 0.2 10x3/uL (0.0-0.5); #Monocytes 0.9 10x3/uL (0.0-1.1); #Neutrophils 4.8 10x3/uL (1.5-8.4); %Basophils 0.4 % (0.0-2.0); %Lymphocytes 22.8 % (18.0-47.0); %Monocytes 11.5 % (0.0-10.0); %Neutrophils 62.9 % (40.0-75.0); Mean Corpuscular HGB CONC 33.7 g/dL (32.0-36.0); Mean Corpuscular Volume 86.2 fl (81.2-95.1); Mean Platelet Volume 9.9 fl (7.4-10.4); Platelet Count 214 10x3/uL (150-450); RBC Distribution Width 12.5 % (11.5-14.5); Red Blood Cell (RBC) Count 4.48 10x6/uL (4.32-5.72); White Blood Cell (WBC) Count 7.6 10x3/uL (3.5-10.5)
== END 2021-05-01 11:09 | disposition home or self-care (01) ==
LOC: LABBT 11:08
PROVIDERS: ATTEND Internal Medicine Cardiovascular Disease
DX: Z01.812 Encounter for preprocedural laboratory examination (principal); R07.9 Chest pain, unspecified
CPT/HCPCS: 80053; 85025

== ENCOUNTER → 2021-05-06 | Day surgery (SDC) | payer MEDICARE, OTHER ==
[2021-05-05 11:08] VITALS: BMI 35.1
[~2021-05-06] MED LIST changes: +Fentanyl 100 MCG/2 ML VIAL ONE; +Heparin 10,000 UNITS/ 10 ML VIAL ONE; +Iopamidol 370 76% 100 ML VIAL ONE; +Lidocaine 1% (PF) 30 ML VIAL ONE; +Midazolam HCl 2 mg/2 ml Vial ONE; +Nitroglycerin 100MG/250ML BOT 250 ML ONE; -Sodium Bicarbonate 2.5 MEQ/5 ML VIAL ONE; +Verapamil 5 MG/2 ML VIAL ONE
== END ==
LOC: CCL 08:05
PROVIDERS: ATTEND Internal Medicine Cardiovascular Disease
PROC: 4A023N7 Measurement of Cardiac Sampling and Pressure, Left Heart, Percutaneous Approach (ICD-10-PCS; principal; 2021-05-06)
PROC: B2111ZZ Fluoroscopy of Multiple Coronary Arteries using Low Osmolar Contrast (ICD-10-PCS; 2021-05-06)
DX: R07.2 Precordial pain (principal); I10 Essential (primary) hypertension; E78.5 Hyperlipidemia, unspecified; E78.00 Pure hypercholesterolemia, unspecified; G47.30 Sleep apnea, unspecified; E66.9 Obesity, unspecified; Z68.35 Body mass index [BMI] 35.0-35.9, adult; Z87.891 Personal history of nicotine dependence; Z79.82 Long term (current) use of aspirin; Z79.84 Long term (current) use of oral hypoglycemic drugs; Z79.899 Other long term (current) drug therapy
CPT/HCPCS: 93458; 99152; J1644; J2001; J2250; J3010; Q9967

== ENCOUNTER 2022-01-08 09:56 | Outpatient (CLI) | payer MEDICARE, OTHER | END 2022-01-08 09:57 | disposition home or self-care (01) | LOC: BICULT 09:56 | PROVIDERS: ATTEND Urology | DX: N20.0 Calculus of kidney (principal); A54.23 Gonococcal infection of other male genital organs; Z90.5 Acquired absence of kidney | CPT/HCPCS: 76770 ==

== ENCOUNTER 2023-08-13 12:09 | Inpatient (IN) | payer MEDICARE, OTHER ==
[~2023-08-13 12:09] MED LIST changes: -Fentanyl 100 MCG/2 ML VIAL ONE; -Heparin 10,000 UNITS/ 10 ML VIAL ONE; -Iopamidol 370 76% 100 ML VIAL ONE; +Iopamidol-370 76% 500 ML MDV (1 ML CHARGE) ONE; -Lidocaine 1% (PF) 30 ML VIAL ONE; -Midazolam HCl 2 mg/2 ml Vial ONE; -Nitroglycerin 100MG/250ML BOT 250 ML ONE; -Verapamil 5 MG/2 ML VIAL ONE
[2023-08-13 12:57] LABS: #Monocytes 1.6 thou/uL (0.11-0.59); %Basophils 0.1 % (0.0-1.0); %Lymphocytes 4.8 % (21.0-51.0); %Monocytes 6.7 % (0.0-10.0); %Neutrophils 87.8 % (42.0-75.0); Hematocrit 39.5 % (42.0-52.0); Hemoglobin 13.7 g/dL (14.0-18.0); Mean Corpuscular HGB CONC 34.7 g/dL (32.0-36.0); Mean Corpuscular Hemoglobin 30.5 pg (27.0-31.0); Mean Platelet Volume 9.6 fL (7.4-10.4); Platelet Count 230 10x3/uL (130-400); RBC Distribution Width 12.2 % (11.5-14.5); Red Blood Cell (RBC) Count 4.49 mill/uL (4.70-6.10); White Blood Cell (WBC) Count 23.9 10x3/uL (4.8-10.8)
[2023-08-13 13:07] LABS: ALT (SGPT) 25 U/L (8-55); AST (SGOT) 18 U/L (5-34); Albumin 4.5 g/dL (3.4-4.8); Alkaline Phosphatase 99 U/L (40-110); Anion Gap 18 mmol/L (10-20); BUN (Urea Nitrogen) 27 mg/dL (8.4-25.7); Bilirubin, Total 0.3 mg/dL (0.2-1.2); Calc. Creatinine Clearance 0 mL/min (70-130); Calcium 9.5 mg/dL (7.8-10.44); Carbon Dioxide 19 mmol/L (23-31); Chloride 106 mmol/L (98-107); Estimated GFR 66; Globulin 2.7 g/dL (2.4-3.5); Glucose 218 mg/dL (83-110); Potassium 3.7 mmol/L (3.5-5.1); Protein, Total 7.2 g/dL (5.8-8.1); Sodium 139 mmol/L (136-145)
[2023-08-13 13:19] LABS: Bilirubin Negative (Negative); Blood, Urine 3+ (Negative); CAUTI Indications for Culture Pelvic or flank pain; Clarity Turbid (Clear); Glucose, Urine (Dipstick) Normal (Negative); Ketone, Urine Negative (Negative); Leukocyte 500 Leu/uL (Negative); Nitrite 1+ (Negative); Protein, Urine (Dipstick) 20 mg/dL (Neg-Trace); Specific Gravity, Urine 1.022 (1.002-1.036); Squamous Epithelial 0-3 HPF (0-3); Urobilinogen Normal mg/dL (Less than 2); WBC/HPF Greater than 50 HPF (0-3)
[2023-08-13 13:20] LABS: Bacteria/HPF 1+ HPF (None Seen)
[2023-08-13 13:21] LABS: Urine Culture Reflex Yes Yes
[2023-08-13] MEDS ORDERED: Cefepime 2 GM VIAL ONE (13:50)
[2023-08-13] MEDS ORDERED: Morphine 4 MG/ML VIAL ONE (13:50)
[2023-08-13] MEDS ORDERED: Senokot S 8.6-50 MG TAB PO PRN (15:13)
[2023-08-13] MEDS ORDERED: Glucagon 1 MG/ML KIT IM PRN (15:28)
[2023-08-13] MEDS ORDERED: HumaLOG 300 UNITS/3 ML VIAL SC PRN (15:28)
[2023-08-13] MEDS ORDERED: Dextrose 5% in Water 1,000 ML IV PRN (15:28)
[2023-08-13] MEDS ORDERED: Dextrose 50% Abboject 50 ML SYRINGE SLOW IVP PRN (15:28)
[2023-08-13] MEDS ORDERED: Morphine 2 MG/ML VIAL SLOW IVP PRN (15:31)
[2023-08-13] MEDS ORDERED: Acetaminophen 325 MG TAB ONE (16:10)
[2023-08-13 16:22] LABS: Lactic Acid 2.4 mmol/L (0.5-2.2)
[2023-08-13] MEDS: Sodium Chloride 0.9% 1,000 ML IV SCH (16:35)
[2023-08-13 16:51] VITALS: BMI 32.8
[2023-08-13] MEDS ORDERED: FLU VACC QS2023(65UP)/MF59C/PF 60 MCG/0.5 ML SYRINGE IM ONE (17:00)
[2023-08-13] MEDS: Famotidine 20 MG TAB PO SCH (20:41)
[2023-08-13] MEDS: Acetaminophen 325 MG TAB PO PRN (20:41)
[2023-08-14] MEDS ORDERED: Cefepime 1 GM in Sodium Chloride 0.9% 100 ML IVPB SCH (02:00)
[2023-08-14 04:31] LABS: #Monocytes 1.9 thou/uL (0.11-0.59); #Neutrophils 18.8 thou/uL (1.40-6.50); %Basophils 0.2 % (0.0-1.0); %Lymphocytes 5.9 % (21.0-51.0); %Monocytes 8.4 % (0.0-10.0); %Neutrophils 84.3 % (42.0-75.0); Hematocrit 34.3 % (42.0-52.0); Hemoglobin 11.8 g/dL (14.0-18.0); Mean Corpuscular HGB CONC 34.4 g/dL (32.0-36.0); Mean Corpuscular Hemoglobin 30.4 pg (27.0-31.0); Mean Corpuscular Volume 88.4 fl (78.0-98.0); Mean Platelet Volume 9.7 fL (7.4-10.4); Platelet Count 167 10x3/uL (130-400); RBC Distribution Width 12.7 % (11.5-14.5); Red Blood Cell (RBC) Count 3.88 mill/uL (4.70-6.10); White Blood Cell (WBC) Count 22.3 10x3/uL (4.8-10.8)
[2023-08-14 04:54] LABS: Anion Gap 12 mmol/L (10-20); BUN (Urea Nitrogen) 17 mg/dL (8.4-25.7); Calc. Creatinine Clearance 102 mL/min (70-130); Calcium 8.7 mg/dL (7.8-10.44); Carbon Dioxide 23 mmol/L (23-31); Chloride 105 mmol/L (98-107); Estimated GFR 89; Glucose 140 mg/dL (83-110); Potassium 3.8 mmol/L (3.5-5.1); Sodium 136 mmol/L (136-145)
[2023-08-14] MEDS: HYDROcodone/Acetaminophen 5/325 mg Tablet PO PRN ×4 (05:09→23:47)
[2023-08-14] MEDS: Sodium Chloride 0.9% 1,000 ML IV SCH (05:11)
[2023-08-14] MEDS: Famotidine 20 MG TAB PO SCH ×2 (09:25→19:51)
[2023-08-14] MEDS: cefTRIAXone\\ROCEPHIN 1 GM in Sodium Chloride 0.9% 100 ML IVPB SCH (11:13)
[2023-08-14] MEDS: Lactated Ringer's 1,000 ML IV SCH ×2 (11:13→17:43)
[2023-08-14] MEDS ORDERED: Phenol 177 ML BOT PO PRN (17:55)
[2023-08-15] MEDS: Lactated Ringer's 1,000 ML IV SCH ×4 (00:32→21:24)
[2023-08-15 05:49] LABS: #Eosinphils 0.1 thou/uL (0.0-0.7); #Monocytes 1.6 thou/uL (0.11-0.59); #Neutrophils 16.5 thou/uL (1.40-6.50); %Basophils 0.2 % (0.0-1.0); %Eosinophils 0.5 % (0.0-10.0); %Lymphocytes 6.5 % (21.0-51.0); %Monocytes 8.2 % (0.0-10.0); %Neutrophils 83.8 % (42.0-75.0); Hematocrit 36.2 % (42.0-52.0); Hemoglobin 12.4 g/dL (14.0-18.0); Mean Corpuscular HGB CONC 34.3 g/dL (32.0-36.0); Mean Corpuscular Hemoglobin 30.7 pg (27.0-31.0); Mean Corpuscular Volume 89.6 fl (78.0-98.0); Mean Platelet Volume 9.8 fL (7.4-10.4); Platelet Count 173 10x3/uL (130-400); RBC Distribution Width 12.5 % (11.5-14.5); Red Blood Cell (RBC) Count 4.04 mill/uL (4.70-6.10); White Blood Cell (WBC) Count 19.7 10x3/uL (4.8-10.8)
[2023-08-15 06:17] LABS: Anion Gap 14 mmol/L (10-20); BUN (Urea Nitrogen) 17 mg/dL (8.4-25.7); Calc. Creatinine Clearance 108 mL/min (70-130); Calcium 9.1 mg/dL (7.8-10.44); Carbon Dioxide 21 mmol/L (23-31); Chloride 105 mmol/L (98-107); Estimated GFR 91; Glucose 125 mg/dL (83-110); Potassium 3.9 mmol/L (3.5-5.1); Sodium 136 mmol/L (136-145)
[2023-08-15] MEDS: cefTRIAXone\\ROCEPHIN 1 GM in Sodium Chloride 0.9% 100 ML IVPB SCH (08:32)
[2023-08-15] MEDS: Famotidine 20 MG TAB PO SCH ×2 (08:36→21:16)
[2023-08-15] MEDS: Ondansetron PF 4 MG/2 ML Vial IVP PRN (08:36)
[2023-08-15] MEDS: HYDROcodone/Acetaminophen 5/325 mg Tablet PO PRN ×3 (08:36→17:21)
[2023-08-15] MEDS ORDERED: Phenazopyridine HCl 95 MG TAB PO SCH (09:00)
[2023-08-15] MEDS: Phenazopyridine HCl 100 MG TAB PO SCH ×3 (09:24→17:20)
[2023-08-15] MEDS ORDERED: Fluticasone Propionate Nasal Spray 16 gm Bottle NASAL PRN (13:38)
[2023-08-15] MEDS ORDERED: Cyclobenzaprine 10 MG TAB PO PRN (13:38)
[2023-08-15] MEDS ORDERED: Dulaglutide [Trulicity] 0.75 MG/0.5 ML Pen.Injctr SC SCH (14:00)
[2023-08-15] MEDS: metFORMIN 500 MG TAB PO SCH (17:20)
[2023-08-15] MEDS ORDERED: SAW PALMETTO 500 MG PO SCH (21:00)
[2023-08-15] MEDS: Gabapentin 300 MG CAP PO SCH (21:13)
[2023-08-15] MEDS: CeleCOXIB 100 MG CAP PO SCH (21:15)
[2023-08-15] MEDS: Atorvastatin Calcium 10 MG TAB PO SCH (21:16)
[2023-08-15] MEDS: Ascorbic Acid 500 mg Chewable Tablet PO SCH (21:16)
[2023-08-15] MEDS: DULoxetine 20 MG CAP PO SCH (21:17)
[2023-08-16] MEDS: Lactated Ringer's 1,000 ML IV SCH ×4 (02:13→21:02)
[2023-08-16] MEDS ORDERED: Azelastine 137 MCG/NASAL Spray 30 ML NS SCH (02:30)
[2023-08-16] MEDS ORDERED: Oxymetazoline HCl 0.05% (30 ML BOT) NS PRN (03:00)
[2023-08-16] MEDS: Ondansetron PF 4 MG/2 ML Vial IVP PRN (04:42)
[2023-08-16] MEDS: metFORMIN 500 MG TAB PO SCH ×2 (09:03→17:39)
[2023-08-16] MEDS: Aspirin 81 mg Enteric Coated Tablet PO SCH (09:03)
[2023-08-16] MEDS: Famotidine 20 MG TAB PO SCH ×2 (09:04→20:59)
[2023-08-16] MEDS: Ascorbic Acid 500 mg Chewable Tablet PO SCH ×2 (09:04→21:00)
[2023-08-16] MEDS: Amlodipine 10 MG TAB PO SCH (09:05)
[2023-08-16] MEDS: Lisinopril 20 MG TAB PO SCH (09:05)
[2023-08-16] MEDS: Phenazopyridine HCl 100 MG TAB PO SCH ×3 (09:06→17:39)
[2023-08-16] MEDS: Cyanocobalamin (Vitamin B-12) 1,000 MCG TAB PO SCH (09:06)
[2023-08-16] MEDS: Loratadine 10 MG TAB PO SCH (09:07)
[2023-08-16] MEDS: Furosemide 20 MG TAB PO SCH (09:07)
[2023-08-16] MEDS: Gabapentin 300 MG CAP PO SCH ×2 (09:07→21:01)
[2023-08-16] MEDS: DULoxetine 20 MG CAP PO SCH ×2 (09:11→20:59)
[2023-08-16] MEDS: cefTRIAXone\\ROCEPHIN 1 GM in Sodium Chloride 0.9% 100 ML IVPB SCH (12:06)
[2023-08-16] MEDS: Atorvastatin Calcium 10 MG TAB PO SCH (21:00)
[2023-08-16] MEDS: CeleCOXIB 100 MG CAP PO SCH (21:01)
[2023-08-16] MEDS: Acetaminophen 325 MG TAB PO PRN (21:04)
[2023-08-17 06:30] LABS: #Eosinphils 0.2 thou/uL (0.0-0.7); #Neutrophils 5.4 thou/uL (1.40-6.50); %Basophils 0.4 % (0.0-1.0); %Lymphocytes 19.3 % (21.0-51.0); %Monocytes 11.7 % (0.0-10.0); %Neutrophils 66.2 % (42.0-75.0); Hematocrit 34.7 % (42.0-52.0); Hemoglobin 11.9 g/dL (14.0-18.0); Mean Corpuscular HGB CONC 34.3 g/dL (32.0-36.0); Mean Corpuscular Hemoglobin 29.8 pg (27.0-31.0); Mean Platelet Volume 9.7 fL (7.4-10.4); Platelet Count 199 10x3/uL (130-400); RBC Distribution Width 12.1 % (11.5-14.5); Red Blood Cell (RBC) Count 3.99 mill/uL (4.70-6.10); White Blood Cell (WBC) Count 8.1 10x3/uL (4.8-10.8)
[2023-08-17 06:53] LABS: Anion Gap 10 mmol/L (10-20); BUN (Urea Nitrogen) 20 mg/dL (8.4-25.7); Calc. Creatinine Clearance 91 mL/min (70-130); Calcium 9.3 mg/dL (7.8-10.44); Carbon Dioxide 30 mmol/L (23-31); Chloride 100 mmol/L (98-107); Estimated GFR 78; Glucose 120 mg/dL (83-110); Potassium 3.9 mmol/L (3.5-5.1); Sodium 136 mmol/L (136-145)
[2023-08-17] MEDS ORDERED: Ciprofloxacin 500 MG TAB PO SCH ×2 (08:00→20:00)
[2023-08-17] MEDS: metFORMIN 500 MG TAB PO SCH (08:48)
[2023-08-17] MEDS: Phenazopyridine HCl 100 MG TAB PO SCH (08:48)
[2023-08-17] MEDS: Cyanocobalamin (Vitamin B-12) 1,000 MCG TAB PO SCH (08:48)
[2023-08-17] MEDS: Furosemide 20 MG TAB PO SCH (08:48)
[2023-08-17] MEDS: Ascorbic Acid 500 mg Chewable Tablet PO SCH (08:48)
[2023-08-17] MEDS: Aspirin 81 mg Enteric Coated Tablet PO SCH (08:48)
[2023-08-17] MEDS: Amlodipine 10 MG TAB PO SCH (08:48)
[2023-08-17] MEDS: Lisinopril 20 MG TAB PO SCH (08:49)
[2023-08-17] MEDS: DULoxetine 20 MG CAP PO SCH (08:49)
[2023-08-17] MEDS: Gabapentin 300 MG CAP PO SCH (08:49)
[2023-08-17] MEDS: Famotidine 20 MG TAB PO SCH (08:49)
[2023-08-17] MEDS: Loratadine 10 MG TAB PO SCH (08:49)
[2023-08-17] MEDS: Lactated Ringer's 1,000 ML IV SCH (10:00)
[2023-08-17 11:01] VITALS: BP 166/85; TEMP 98.2
== END 2023-08-17 11:11 | disposition home or self-care (01) | DRG 872 ==
LOC: ERS 12:09 → 2NO 14:57 → T4-A 08-14 14:35
PROVIDERS: ADMIT Family Medicine; ATTEND Internal Medicine
DX: A41.51 Sepsis due to Escherichia coli [E. coli] (principal); R65.20 Severe sepsis without septic shock; N30.90 Cystitis, unspecified without hematuria; K21.9 Gastro-esophageal reflux disease without esophagitis; E78.5 Hyperlipidemia, unspecified; I10 Essential (primary) hypertension; K57.30 Diverticulosis of large intestine without perforation or abscess without bleeding; N20.0 Calculus of kidney; Z79.82 Long term (current) use of aspirin; Z79.899 Other long term (current) drug therapy; Z79.84 Long term (current) use of oral hypoglycemic drugs; Z90.49 Acquired absence of other specified parts of digestive tract; Z87.891 Personal history of nicotine dependence; Z96.641 Presence of right artificial hip joint; Z98.890 Other specified postprocedural states; Z90.5 Acquired absence of kidney; Z85.528 Personal history of other malignant neoplasm of kidney; E11.42 Type 2 diabetes mellitus with diabetic polyneuropathy
CPT/HCPCS: 36415; 36416; 74177; 80048; 80053; 81001; 83605; 85025; 87040; 87077; 87086; 87149; 87186; 93005; 96365; 96375; J0692; J0696; J1650; J2270; J2272; J2405; J3490; J7050; J7120; Q9967